=== PATIENT | male | born 1980 | race Caucasian/White ===

== ENCOUNTER 2021-09-28 15:05 | Emergency (ER) | payer SELFPAY ==
[~2021-09-28] VITALS: Ht 180.3 cm; Wt 86.4 kg
[2021-09-28 15:26] LABS: BASO # 0.1 K/mm3 (0.0-0.2); BASO % 0.6 % (0.0-2.0); EOS # 0.2 K/mm3 (0.0-0.7); EOS % 1.7 % (0.0-4.0); GRAN # 5.8 K/mm3 (1.4-6.5); HEMATOCRIT 38.7 % (42.0-52.0); HEMOGLOBIN 12.5 g/dl (13.5-18.0); LYMPH # 4.2 K/mm3 (1.2-3.4); LYMPH % 35.1 % (20.0-51.0); MEAN CELL VOLUME 96 fl (80.0-100.0); MEAN CORPUSCULAR HEMOGLOBIN 31 pg (27-31); MEAN CORPUSCULAR HGB CONC 32 g/dl (33.0-37.0); MEAN PLATELET VOLUME 10.6 fl (7.4-10.4); MONO # 1.5 K/mm3 (0.1-0.6); MONO % 12.5 % (1.7-9.3); PLATELET COUNT 255 K/mm3 (130-400); RED BLOOD COUNT 4.05 M/mm3 (4.20-5.60); REDCELL DISTRIBUTION WIDTH-CV 13.6 % (11.5-14.5)
[2021-09-28 15:31] LABS: ALBUMIN 4.8 gm/dL (3.5-5.0); BILIRUBIN,TOTAL 0.6 mg/dL (0.2-1.2); CALCIUM 10.4 mg/dL (8.4-10.2); CREATININE, serum 1.56 mg/dL (0.72-1.25); POTASSIUM 3.8 mmol/L (3.5-4.5); TOTAL PROTEIN 7.7 gm/dL (6.2-8.1)
[2021-09-28 15:37] LABS: TROPONIN-I 0.01 ng/mL (0.00-0.033)
[2021-09-28 16:31] LABS: ARTERIAL BLD GAS O2 SATURATION 99.5 % (92-100); ARTERIAL BLD GAS TCO2 CT 23.9; ARTERIAL BLOOD GAS BASE EXCESS -3.7 (-2-2); ARTERIAL BLOOD GAS HCO3 22.5 meq/L (22-26); ARTERIAL BLOOD GAS PCO2 45.2 mmHg (35-45); ARTERIAL BLOOD GAS pH 7.32 (7.35-7.45)
[2021-09-28 16:32] LABS: ARTERIAL BLOOD GAS PO2 393.9 mmHg (80-100)
[2021-09-28 16:44] LABS: TRICYCLIC ANTIDEPRESS URINE NEGATIVE
[2021-09-28 21:00] VITALS: TEMP 103.2
[2021-09-28 22:00] VITALS: BP 148/83; PULSE 116
--- NOTE | 2021-09-29 08:23 | NUR ---
"Late Entry" Patient responded to consult yesterday, 09/29. The patient had a stroke. The patient's RN notified SW that they are looking at transferring the patient, but the stroke was unsurvivable. The patient's daughter, Fariha Barrientos (ph#[phone]), and her boyfriend were in the family waiting room and had been updated by the doctor and RN. SW met with Fariha and her boyfriend and provided support. SW inquired about next-of-kin. Fariha reports that the patient is to Sarah Barrientos (Her mom), but that Sarah is in penitentiary right now at [facility]. She states that her mom is able to make bail, but they do not have the money to bail her out. Fariha states that the patient and his also have an 8-year-old daughter. Fariha states that the patient's co-worker is watching her right now and that the co-worker or her will continue to watch her sister. The patient's is his next-of-kin. SW contact [facility] and spoke to the penitentiary supervisor tumbling and rolling. The penitentiary supervisor tumbling and rolling states that Sarah is aware her had a stroke. The penitentiary supervisor tumbling and rolling states that Sarah is unable to come to the hospital until there is an order from the [place] administrative law judge. The penitentiary supervisor tumbling and rolling put Sarah on the phone. The ED doctor and ED Director updated Sarah on the patient's status and informed her how they are looking at transferring the patient. Savana, ED Director, states that Sarah does not want to reliquish her rights as the patient's next-of-kin. Sarah plans on talking to her activities concierge to be able to visit the patient. Savana received a direct phone number to the penitentiary to talk to Sarah. DANYEL then met with the patient's daughter, Fariha, and updated her on the above. Fariha states that she just talked to the patient's boss and his boss is going to bail Sarah out of penitentiary. DANYEL updated Savana.
== END 2021-09-28 22:00 | disposition short-term general hospital (02) ==
LOC: COL.ER 15:19
PROVIDERS: Personal Emergency Response Attendant
DX: S06.2X9A Diffuse traumatic brain injury with loss of consciousness of unspecified duration, initial encounter (principal); Z87.891 Personal history of nicotine dependence; Z20.822 Contact with and (suspected) exposure to COVID-19; X58.XXXA Exposure to other specified factors, initial encounter
CPT/HCPCS: 99223; J1953; J2310; J2704; J7030; J7050